=== PATIENT | female | born 1990 | race Caucasian/White ===

== ENCOUNTER 2024-10-26 15:22 | Emergency (ER) | payer MEDICAID, SELFPAY ==
[2024-10-26 15:28] VITALS: BP 133/65; PULSE 105; RESP 16; TEMP 36.4; O2SAT 100
--- NOTE | 2024-10-26 16:06 | ED_ITS ---
HPI - Female Genitourinary General Chief complaint: Urogenital-Female Stated complaint: poss bladder infection Time Seen by Provider: 10/26/24 15:30 Source: patient, RN notes reviewed and old records reviewed Mode of arrival: ambulatory Limitations: no limitations History of Present Illness HPI Narrative: 34 year old female with complaints of urinary frequency, burning for the past 3 days with some suprapubic tenderness and also with some chills noted. Patient reports that she has not had any known fevers. no nausea or vomiting or any diarrhea. Patient has taken Azo for the burning with last dose 2 hours ago. Patient reports no vaginal discharge or itching or any concern for STD exposure. MD elicited complaint: UTI Onset (ago): day(s) (3) Location of symptoms: suprapubic and urethra Severity scale (1-10): 5 Quality of pain: cramping and burning Vaginal discharge: none Treatment prior to arrival: OTC urinary analgesics (AZO) Related Data Allergies Allergy/AdvReac Type Severity Reaction Status Date / Time Iodinated Contrast Media Allergy Unknown Verified 10/26/24 15:33 Review of Systems Review of Systems: CONSTITUTIONAL: Denies fever states positive for some chills today no known fever, CARDIOVASCULAR: Denies chest pain, palpitations, or edema. RESPIRATORY: Denies cough or dyspnea. GASTROINTESTINAL: Reports suprapubic abdominal pain,no nausea, vomiting, or diarrhea. GENITOURINARY: Reports dysuria, frequency, urgency. Denies flank pain or hematuria. SKIN: Denies rash or itching. MUSCULOSKELETAL: Denies back pain or myalgia. Denies CVA tenderness NEUROLOGIC: Denies headache All systems reviewed & are unremarkable except as noted in HPI and below PMFSH Past Medical History Medical History (Updated 10/28/24 @ 15:42 by Loli Junior NP) Asthma Social History Social History (Updated 10/28/24 @ 15:38 by Loli Junior NP) Smoking status: Smoker, status unknown Alcohol intake: unknown Substance use: unknown Living arrangements: with family Gender identity (if verbalized by the patient): Female Comments At time of signature, agree with nursing past medical, surgical, social and family history. There is no relevant family history pertinent to the presenting complaint Exam Narrative: GENERAL: Well-appearing, well-nourished, and in no acute distress. HEAD: Normocephalic, atraumatic. NECK: Supple.no lymphadenopathy CHEST: Clear to auscultation. No respiratory distress.SAO2 100% on room air HEART: Regular rate and rhythm. No murmur heard. Normal peripheral pulses. ABDOMEN: Soft, tender over suprapubic area,, nondistended, normal active bowel sounds. No CVA tenderness, burning and frequency of urination EXTREMITIES: Normal range of motion. No edema. SKIN: Warm, dry, no rash. NEURO: No focal deficits. Alert and oriented x3. Course Course Emergency Course: Patient is aware of diagnosis, understands and agrees to treatment plan.? Anticipatory guidance given.? Patient agrees to follow-up as directed and is aware of reasons to seek care at the emergency department. Portions of this record may have been created with voice recognition software Level of Care: Express Care Visit Vital Signs Vital signs: Vital Signs Temperature 36.4 C L 10/26/24 15:28 Pulse Rate 105 H 10/26/24 15:28 Respiratory Rate 16 10/26/24 15:28 Blood Pressure 133/65 10/26/24 15:28 Pulse Oximetry 100 10/26/24 15:28 Oxygen Delivery Room Air 10/26/24 15:28 Temperature 36.4 C L 10/26/24 15:28 Pulse Rate 105 H 10/26/24 15:28 Respiratory Rate 16 10/26/24 15:28 Blood Pressure 133/65 10/26/24 15:28 Pulse Oximetry 100 10/26/24 15:28 Oxygen Delivery Room Air 10/26/24 15:28 MDM - Female Genitourinary MDM Narrative Medical decision making narrative: Exam findings and UA show no acute concerns or changes; patient is non-toxic appearing and is in no distress.? Patient is appropriate for outpatient treatment and follow-up. Differential Diagnosis Differential diagnosis: Likely urinary tract infection, cystitis and other (dysuria) Medical Records Attestation: I reviewed the patient's medical records. Lab Data Attestation: I reviewed the patient's lab results. Lab results narrative: Urine dip glucose 1+ bilirubin 1+, ketones trace, specific gravity 1.025, blood 2+ pH 5.0 protein 3+, urobilinogen 0.0 nitrate positive, leukocyte 3+ patient has taken AZO Labs: Lab Results 10/26/24 Range/Units 16:08 POC Urine Color Rankin POC Urine Clarity Clear POC Urine pH 5.0 POC Ur Specif Wilson 1.025 POC Urine Protein 3+ (Negative) POC Ur Glucose (UA) 1+ (Negative) POC Urine Ketones Trace (Negative) POC Urine Blood 2+ (Negative) POC Urine Nitrite Positive (Negative) POC Urine Bilirubin 1+ (Negative) POC Urine Urobilinogen 4.0 POC U Leukocyte Esteras 3+ (Negative) Critical Care Time Critical Care Time Critical Care Time: No Discharge Plan Discharge Clinical Impression: Urinary tract infection Patient Disposition: Home, Self-Care Condition: Stable Instructions: Antibiotic Form, Urinary Tract Infection in Women (ED), Dysuria (ED) Additional Instructions: Increase fluids especially cranberry juice and water Avoid caffeine and carbonated beverages Antibiotic as directed Medicine as directed--cautioned it will cause your urine to be bright orange Tylenol/ibuprofen for pain or fever Follow-up with her primary care provider if further problems or concerns Recheck if you have fever over 101, nausea and vomiting. If your symptoms persist, change or worsen significantly before you can contact your personal physician then please, without delay, go to the emergency department for further evaluation. Follow-up with PCP in 7-10 days or sooner if needed Follow up with PCP soon in regards to your blood pressure which is elevated above threshold for referral. Blood pressure above 120/80 may indicate pre- hypertension. Blood 133/65 Prescriptions: New amoxicillin-pot clavulanate 875-125 mg tablet 1 tablet PO Q12H Qty: 20 0RF Follow-up/Referrals: PHYSICIAN,SPRAY RIG OPERATOR [Primary Care Provider] - Time of Disposition: 16:16 Quality [place] Coma Scale Eyes: Open Verbal: Oriented and Alert Motor: Follows Commands [place] Coma Total Score: 15
[2024-10-26 16:11] LABS: EDUAAPPEAR Clear; EDUABILI 1+ (Negative); EDUABLOOD 2+ (Negative); EDUACOLOR1 Orange; EDUAGLUCOSE 1+ (Negative); EDUAKETONE Trace (Negative); EDUALEUKO 3+ (Negative); EDUANITRATE Positive (Negative); EDUAPROTEIN 3+ (Negative); EDUASPGRAVITY 1.025
== END 2024-10-26 16:22 | disposition home or self-care (01) ==
PROVIDERS: Emergency Provider Registered Nurse
DX: N39.0 Urinary tract infection, site not specified (principal); B96.20 Unspecified Escherichia coli [E. coli] as the cause of diseases classified elsewhere; J45.909 Unspecified asthma, uncomplicated
CPT/HCPCS: 81003; 87077; 87086; 87186; 99203; G0463